=== PATIENT | male | born 1985 | race Caucasian/White ===

== ENCOUNTER 2022-07-14 08:37 | Emergency (ER) | payer OTHER, SELFPAY ==
[2022-07-14 08:43] VITALS: BMI 27.2
[2022-07-14 08:46] VITALS: BP 150/88; PULSE 64; RESP 17; TEMP 36.7; O2SAT 97
--- NOTE | 2022-07-14 08:59 | CTR_ITS ---
PROCEDURE INFORMATION: Exam: CTA Head With Contrast, Arteriography Exam date and time: 07/14/2022 9:23 AM Age: 37 years old Clinical indication: Pain; Headache; Additional info: Worst headache of life TECHNIQUE: Imaging protocol: Computed tomographic angiography of the head with contrast. Exam focused on the arteries. 3D rendering (Not supervised by radiologist): MIP and/or 3D reconstructed images were created by the technologist. Radiation optimization: All CT scans at this facility use at least one of these dose optimization techniques: automated exposure control; mA and/or kV adjustment per patient size (includes targeted exams where dose is matched to clinical indication); or iterative reconstruction. Contrast material: OMNI 350; Contrast volume: 100 ml; Contrast route: INTRAVENOUS (IV); COMPARISON: No relevant prior studies available. RADIATION DOSE METRICS: Total DLP (mGy-cm): 992.92 FINDINGS: ANTERIOR CIRCULATION: Right internal carotid artery: Intracranial segment is patent with no significant stenosis. No aneurysm. Right middle cerebral artery: No occlusion or significant stenosis. No aneurysm. Right anterior cerebral artery: No occlusion or significant stenosis. No aneurysm. Left internal carotid artery: Intracranial segment is patent with no significant stenosis. No aneurysm. Left middle cerebral artery: No occlusion or significant stenosis. No aneurysm. Left anterior cerebral artery: No occlusion or significant stenosis. No aneurysm. POSTERIOR CIRCULATION: Right vertebral artery: No occlusion or significant stenosis. No aneurysm. Left vertebral artery: No occlusion or significant stenosis. No aneurysm. Basilar artery: No occlusion or significant stenosis. No aneurysm. Right posterior cerebral artery: No occlusion or significant stenosis. No aneurysm. Left posterior cerebral artery: No occlusion or significant stenosis. No aneurysm. Brain: No definite mass, mass effect, or midline shift. Cerebral ventricles: No ventriculomegaly. Paranasal sinuses: Scattered mild mucosal thickening in the paranasal sinuses. Bones/joints: Unremarkable. No acute fracture. Soft tissues: Unremarkable. PROCEDURE INFORMATION: Exam: CTA Neck With Contrast Exam date and time: 07/14/2022 9:23 AM Age: 37 years old Clinical indication: Pain; Headache; Additional info: Worst headache of life TECHNIQUE: Imaging protocol: Computed tomographic angiography of the neck with contrast. 3D rendering (Not supervised by radiologist): MIP and/or 3D reconstructed images were created by the technologist. Radiation optimization: All CT scans at this facility use at least one of these dose optimization techniques: automated exposure control; mA and/or kV adjustment per patient size (includes targeted exams where dose is matched to clinical indication); or iterative reconstruction. Contrast material: OMNI 350; Contrast volume: 100 ml; Contrast route: INTRAVENOUS (IV); COMPARISON: CR XR soft tissue neck [id number] 07/07/2018 9:36 AM RADIATION DOSE METRICS: Total DLP (mGy-cm): 992.92 FINDINGS: Right common carotid artery: No stenosis. No dissection or occlusion. Right internal carotid artery: No stenosis of the extracranial segment. No dissection or occlusion. Right external carotid artery: No occlusion or stenosis of the origin. Left common carotid artery: No stenosis. No dissection or occlusion. Left internal carotid artery: No stenosis of the extracranial segment. No dissection or occlusion. Left external carotid artery: No occlusion or stenosis of the origin. Right vertebral artery: No stenosis. No dissection or occlusion. Left vertebral artery: No stenosis. No dissection or occlusion. Soft tissues: Normal. No significant soft tissue swelling. Bones/joints: No acute fracture. CT/CT angio headneck* [id number] IMPRESSION: No intracranial occlusion, stenosis or aneurysm. IMPRESSION: No stenosis or occlusion. REFERENCES: NASCET CRITERIA. The degree of stenosis in the cervical segment of the internal carotid artery is based on NASCET criteria. Normal is no stenosis. Mild is less than 50% stenosis. Moderate is 50-69% stenosis. Severe is 70% to 99% stenosis. Total occlusion is no detectable patent lumen.
--- NOTE | 2022-07-14 09:19 | ECG_ITS ---
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 Measurements Intervals [place] Rate: 63 P: -1 UT: 188 QRS: 12 QRSD: 96 T: 46 QT: 386 QTc: 395 Interpretive Statements SINUS RHYTHM WITH OCCASIONAL SUPRAVENTRICULAR PREMATURE COMPLEXES Compared to ECG 09/07/2018 10:05:17 Sinus arrhythmia no longer present Electronically Signed On 07-14-2022 22:03:52 CDT by Octavia Robledo M.D. [email or web address] memorial hospitalVmedia Researchmercy health defiance hospitalSpring Mobile [id number]
[2022-07-14 09:22] LABS: Basophils % 0.5 %; Eosinophils # 0.2 10^3/uL (0.0-0.8); Eosinophils % 3.9 %; Hematocrit 49.4 % (42.0-52.0); Hemoglobin 17.5 g/dL (11.7-16.6); Lymphocytes # 1.7 10^3/uL (0.8-4.8); Lymphocytes % 26.8 %; Mean Corpuscular HGB Conc 35.4 g/dL (30.0-36.0); Mean Corpuscular Hemoglobin 29.6 pg (28.0-34.0); Mean Corpuscular Volume 83.4 fl (80-94); Mean Platelet Volume 11.3 fL (7.4-10.4); Monocytes # 0.4 10^3/uL (0.2-0.9); Monocytes % 6.8 %; Neutrophils % 61.8 %; Nucleated Red Blood Cells % 0 %; Platelet Count 218 10^3/cmm (130-400); Red Blood Count 5.92 10^6/uL (4.1-5.3); Red Cell Distribution Width 11.8 % (12.1-15.1); White Blood Count 6.2 10^3/uL (4.0-10.0)
[2022-07-14] MEDS: iohexol 350 mg/mL 100 mL Btl IV (09:29)
--- NOTE | 2022-07-14 09:36 | ED_ITS ---
HPI - Headache General: Chief Complaint: Headache Stated Complaint: Migraine Time Seen by Provider: 07/14/22 08:59 History of Present Illness: This patient is a 37-year-old male presenting with the worst headache of his life. This began during intercourse at 10:00 last night. He felt lightheaded as though he was get a pass out. He said nothing seems to help the headache other than rubbing his scalp. He denies prior medical history. He states it feels like something burst in my head . 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 No other recent illness. He says his vision seems blurry but no other neurologic symptoms or complaint. He is able to ambulate normally. No trouble with coordination. He did have 1 episode of vomiting after the headache started. The patient was very anxious about his headache. He admitted that he had googled the diagnosis and may have influenced his choice of words and ex pressing his type of headache. Associated symptoms: Reports nausea and vomiting; Deny chest pain, fever(s), malaise or rash Review of Systems Const: Denies: fever(s), chills, fatigue or malaise Eyes: Reports: change in vision and blurry vision Card: Denies: chest pain or swelling of feet/ankles Resp: Denies: dyspnea, productive cough or non-productive cough GI: Reports: nausea and vomiting : Denies: flank pain Musc: Denies: neck pain or back pain Skin/Breast: Denies: rash Neuro: Reports: headache(s) Josr/Lymph: Denies: easy bruising or easy bleeding Physical Exam Const: COMMON NORMALS: patient oriented x3 and alert; apparent distress (Uncomfortable) GENERAL APPEARANCE: cooperative and comfortable HENMT: HEAD & SCALP: normal to inspection FACE & SINUS: normal facial exam Eye: GENERAL EYE: appearance normal, both eyes and all related structures Neck/C-Spine: COMMON NORMALS: supple, no meningeal signs and no JVD Chest: COMMONS NORMALS: normal inspection of the chest Resp: COMMON NORMALS: normal respiratory effort, No use of accessory muscles and clear to auscultation bilaterally AUSCULTATION: clear to auscultation bilaterally Cardio: COMMON NORMALS: no JVD, regular rate, regular rhythm and No murmurs present (Cardio) RATE: regular rate RHYTHM: regular rhythm GI: COMMON NORMALS: Normal to inspection, nondistended, normoactive bowel sounds present, Soft to palpation and non-tender INSPECTION: Yes normal to inspection AUSCULTATION: Yes normoactive bowel sounds PALPATION: Yes Soft to palpation Back/Pelvis: COMMON NORMALS: thoracic and lumbar spine normal to inspection Extremity: COMMON NORMALS: normal to inspection Neuro: COMMON NORMALS: patient oriented x3, moves all extremities, no focal motor deficits and no sensory deficits noted SENSORIUM/ORIENTATION: Yes alert MENINGEAL SIGNS: Yes no meningeal signs Psych: COMMON NORMALS: mental status grossly normal, cooperative and normal affect Skin: COMMON NORMALS: no rashes or lesions noted and turgor normal GENERAL SKIN EXAM: no rashes or lesions noted and turgor normal Course Vital Signs: Vital signs: Vital Signs Temperature 98.0 F 07/14/22 08:46 Pulse Rate 65 07/14/22 11:43 Respiratory Rate 18 07/14/22 11:43 Blood Pressure 134/93 07/14/22 11:43 Pulse Oximetry 99 07/14/22 11:43 Oxygen Delivery Me thod 07/14/22 09:53 MDM - Headache Medical Decision Making Presentation is very concerning for subarachnoid hemorrhage. Sudden onset of severe headache during intercourse with vomiting, lightheadedness. CT and CTA o rdered. Blood work ordered. EKG ordered. Pain medication and antiemetics ordered. Patient did not like the morphine. He it made him more anxious. He went to CT and had a negative CT and CTA. He was reassured by this. His symptoms had mostly resolved by then. He was given a dose of Toradol. We discussed that it is a known entity that headache can have onset during sexual intercourse. This does not have to be related to a subarachnoid but can simply occur in some people. He will follow-up with his primary care provider for further management if these headaches continue. Differential Diagnosis Likely migraine, tension headache, subarachnoid hemorrhage and headache Lab Data : 07/14/22 09:15 07/14/22 09:15 Radiology Impressions Head/Neck CTA 07/14/22 08:59 IMPRESSION: No intracranial occlusion, stenosis or aneurysm. IMPRESSION: No stenosis or occlusion. REFERENCES: NASCET CRITERIA. The degree of stenosis in the cervical segment of the internal carotid artery is based on NASCET criteria. Normal is no stenosis. Mild is less than 50% stenosis. Moderate is 50-69% stenosis. Severe is 70% to 99% stenosis. Total occlusion is no detectable patent lumen. Laboratory Results WBC 6.2 10^3/uL (4.0-10.0) 07/14/22 09:15 RBC 5.92 10^6/uL (4.1-5.3) H 07/14/22 09:15 Hgb 17.5 g/dL (11.7-16.6) H 07/14/22 09:15 Hct 49.4 % (42.0-52.0) 07/14/22 09:15 MCV 83.4 fl (80-94) 07/14/22 09:15 MCH 29.6 pg (28.0-34.0) 07/14/22 09:15 MCHC 35.4 g/dL (30.0-36.0) 07/14/22 09:15 RDW 11.8 % (12.1-15.1) L 07/14/22 09:15 Plt Count 218 10^3/cmm (130-400) 07/14/22 09:15 MPV 11.3 fL (7.4-10.4) H 07/14/22 09:15 Neut % (Auto) 61.8 % 07/14/22 09:15 Lymph % (Auto) 26.8 % 07/14/22 09:15 Ralls % (Auto) 6.8 % 07/14/22 09:15 Eos % (Auto) 3.9 % 07/14/22 09:15 Baso % (Auto) 0.5 % 07/14/22 09:15 Neut # (Auto) 3.80 10^3/uL (1.8-7.7) 07/14/22 09:15 Lymph # (Auto) 1.7 10^3/uL (0.8-4.8) 07/14/22 09:15 Ralls # (Auto) 0.4 10^3/uL (0.2-0.9) 07/14/22 09:15 Eos # (Auto) 0.2 10^3/uL (0.0-0.8) 07/14/22 09:15 Baso # (Auto) 0.0 10^3/uL (0.0-0.1) 07/14/22 09:15 Nucleated RBC % (auto) 0 % 07/14/22 09:15 Nucleated RBCs # 0.0 /100WBC 07/14/22 09:15 Sodium 139 mmol/L (136-145) 07/14/22 09:15 Potassium 4.1 mmol/L (3.5-5.1) 07/14/22 09:15 Chloride 105 mmol/L (98-107) 07/14/22 09:15 Carbon Dioxide 22 mmol/L (22-29) 07/14/22 09:15 Anion Gap 16.1 (5-19) 07/14/22 09:15 BUN 12 mg/dL (6-20) 07/14/22 09:15 Creatinine 0.8 mg/dL (0.7-1.2) 07/14/22 09:15 GFR Calculation 110.0 mL/min (90-130) 07/14/22 09:15 Glucose 106 mg/dL (65-115) 07/14/22 09:15 Calculated Osmolality 288 mOsm/kg (285-295) 07/14/22 09:15 Calcium 9.7 mg/dL (8.5-10.5) 07/14/22 09:15 Total Bilirubin 0.8 mg/dL (0.15-1.2) 07/14/22 09:15 AST 16 U/L (0-40) 07/14/22 09:15 ALT 20 U/L (0-41) 07/14/22 09:15 Alkaline Phosphatase 68 U/L (40-130) 07/14/22 09:15 Total Protein 7.2 g/dL (6.6-8.7) 07/14/22 09:15 Albumin 4.9 g/dL (3.5-5.2) 07/14/22 09:15 Globulin 2.3 g/dL (1.3-4.6) 07/14/22 09:15 Discharge Plan Discharge Patient Disposition: Home Clinical Impression: Coital headache Condition: Stable Discharge Orders: Discharge ED (Routine); Ordered 07/14/22 Ordered By: Latosha Meraz Referrals: [facility], [Staff Physician] - Discharge Diet: Usual diet Discharge Activity: Resume usual activity Patient Instructions: Opioid Safety, Pain Management Activity Restrictions/Additional Instructions: Return to the ER for worsening symptoms. Follow-up with your primary care physician to discuss this ER visit. You may use [id number] headache medications per label instructions. Stand Alone Forms: Work/School Release Coding Level of Care Code ED Engineer Operations And Maintenance for Vikki Fwd Exam Comprehensive
[2022-07-14 09:45] VITALS: RESP 21
[2022-07-14] MEDS: ondansetron 2 mg/ML SDV 2 mL 4 MG IVP (09:45)
[2022-07-14] MEDS: morphine 4 mg/mL SDV 1 mL IVP (09:45)
[2022-07-14 09:46] VITALS: BP 152/100; PULSE 65; RESP 122; O2SAT 98
[2022-07-14 09:53] VITALS: BP 134/89; PULSE 61; RESP 18; O2SAT 97
[2022-07-14 09:56] LABS: Alanine Aminotransferase 20 U/L (0-41); Albumin Level 4.9 g/dL (3.5-5.2); Alkaline Phosphatase 68 U/L (40-130); Anion Gap 16.1 (5-19); Aspartate Amino Transferase 16 U/L (0-40); Blood Urea Nitrogen 12 mg/dL (6-20); Calcium 9.7 mg/dL (8.5-10.5); Carbon Dioxide 22 mmol/L (22-29); Chloride 105 mmol/L (98-107); Globulin 2.3 g/dL (1.3-4.6); Glucose 106 mg/dL (65-115); Osmolality Calculated 288 mOsm/kg (285-295); Potassium 4.1 mmol/L (3.5-5.1); Sodium 139 mmol/L (136-145); Total Bilirubin 0.8 mg/dL (0.15-1.2); Total Protein 7.2 g/dL (6.6-8.7)
[2022-07-14] MEDS: LORazepam 2 mg/mL INJ 1 mL 1 MG IVP (10:17)
[2022-07-14] MEDS: ketorolac 30 mg/mL INJ 15 MG IVP (11:25)
[2022-07-14 11:43] VITALS: BP 134/93; PULSE 65; RESP 18; O2SAT 99
== END 2022-07-14 11:51 | disposition home or self-care (01) ==
PROVIDERS: Emergency Provider Emergency Medicine
DX: G44.89 Other headache syndrome (principal)
CPT/HCPCS: 70496; 70498; 80053; 85025; 93005; 96374; 96375; 99285; J1885; J2060; J2270; J2405; Q9967

== ENCOUNTER 2023-05-07 11:27 | Observation (INO) | payer BC, MEDICAID, SELFPAY ==
[2023-05-07 11:30] VITALS: BP 177/99; PULSE 42; RESP 17; TEMP 36.5; O2SAT 99; BMI 23.3
--- NOTE | 2023-05-07 12:05 | W.ED.PSYCHS ---
HPI - Psych General: Chief Complaint: Psychiatric Symptoms Stated Complaint: mental help, sent by behavior health Time Seen by Provider: 05/07/23 11:46 Source: patient Mode of arrival: ambulatory History of Present Illness: 38-year-old male presents to the emergency room from [facility]. He has had some relationship issues with a live-in girlfriend and essentially reached a crisis state today went to [facility] where he had been seen in the past by Dr. Rolon he had been started previously on buspirone and another medication he had stopped taking them because of side effects. He went to [facility] he wanted to talk to someone today they are able to get an open appointment for him later in the morning to talk to Dr. Chow he waited for a few hours talk to Dr. Chow suddenly of the course of the conversation resulted in him being referred to the emergency room. On arrival here he understands that he said in response to question about suicide screening that he had answered yes but he states he is referring to an episode years ago in the past. He says when he was in his mid teens nearly 20 years ago he attempted to drown himself in the bathtub but stopped himself and has never tried anything like that again. He adamantly denies any suicidal or homicidal ideation. I can see in the EMR that he has a note from crisis intervention and a note from Dr. Park but I cannot read these notes at this time. He says nothing to me that would justify 96-hour hold at this time. MD complaint: feels depressed Review of Systems Const: Denies: fever(s), chills, body aches, change in appetite, fatigue or malaise ENMT: Denies: throat pain, ear or mastoid pain, nasal discharge or nasal congestion Card: Denies: chest pain, edema, dyspnea on exertion or orthopnea Resp: Denies: dyspnea, productive cough or non-productive cough GI: Denies: abdominal pain, nausea, vomiting, hematemesis, coffee ground emesis, diarrhea, constipation, bloating, hematochezia or melena : Denies: flank pain, dysuria, urinary frequency or urinary urgency Skin/Breast: Denies: rash or pruritus PFS ED PFSH: Medical History Anxiety and depression Musculoskeletal back pain Myalgia Psychiatric care Family History Mother Cancer Other CAD (coronary artery disease) Diabetes Hypertension Denies family history of Chronic kidney disease (CKD) Anesthesia complication Bleeding disorder Social History Smoking and tobacco status: former smoker Second hand smoke exposure: No Alcohol intake: current Alcohol intake frequency: few times a week Substance/Drug Use: current Other substance/drug use details: CBD gummies and flour Lives independently: Yes Household members: none Physical Exam Const: COMMON NORMALS: no acute distress GENERAL APPEARANCE: cooperative and comfortable ORIENTATION/CONSCIOUSNESS: Yes awake, Yes oriented to person, Yes oriented to place and Yes oriented to time HENMT: COMMON NORMALS: normocephalic, atraumatic and hearing grossly normal bilaterally HEAD & SCALP: normocephalic and atraumatic Resp: COMMON NORMALS: normal respiratory effort, No retractions, No use of accessory muscles and clear to auscultation bilaterally AUSCULTATION: clear to auscultation bilaterally Cardio: COMMON NORMALS: regular rate, regular rhythm and No murmurs present (Cardio) RATE: regular rate RHYTHM: regular rhythm Extremity: COMMON NORMALS: normal to inspection, capillary refill normal, no clubbing, cyanosis or edema, no calf tenderness and no pedal edema Neuro: SENSORIUM/ORIENTATION: Yes oriented to person, Yes oriented to place and Yes oriented to time Skin: COMMON NORMALS: no rashes or lesions noted GENERAL SKIN EXAM: no rashes or lesions noted Course Vital Signs: Vital signs: Vital Signs Temperature 96.4 F L 05/08/23 13:08 Pulse Rate 57 L 05/08/23 13:08 Respiratory Rate 17 05/08/23 13:08 Blood Pressure 131/83 05/08/23 13:08 Pulse Oximetry 94 05/08/23 13:08 Oxygen Delivery Me thod Room Air 05/08/23 06:00 MDM - Psych Medical Decision Making Initially after talking the patient had anticipated letting him go home however after further evaluating and reviewing his Chart noted that there was a visit today from [facility] was Dr. Chow reviewed that note with Dr. Beck and after reviewing felt the patient probably should stay he had relayed to Dr. Rolon in the course of his visit today that he had been having suicidal ideations. Discussed with the patient my concern is is that psychiatrist had seen him and advised him to come to the emergency room and while he is denying suicidal ideation now he had indicated otherwise to the psychiatrist. I think he has had very high risk for self-harm given his overall situation and Dr. Beck concurs we both agree that he should be placed on a 96-hour hold and further evaluated. Lab Data 05/07/23 12:00 05/07/23 12:00 Laboratory Results WBC 6.5 10^3/uL (4.0-10.0) 05/07/23 12:00 RBC 5.65 10^6/uL (4.1-5.3) H 05/07/23 12:00 Hgb 16.5 g/dL (11.7-16.6) 05/07/23 12:00 Hct 48.3 % (42.0-52.0) 05/07/23 12:00 MCV 85.5 fl (80-94) 05/07/23 12:00 MCH 29.2 pg (28.0-34.0) 05/07/23 12:00 MCHC 34.2 g/dL (30.0-36.0) 05/07/23 12:00 RDW 12.4 % (12.1-15.1) 05/07/23 12:00 Plt Count 218 10^3/cmm (130-400) 05/07/23 12:00 MPV 11.1 fL (7.4-10.4) H 05/07/23 12:00 Neut % (Auto) 64.4 % 05/07/23 12:00 Lymph % (Auto) 23.5 % 05/07/23 12:00 Mccreary % (Auto) 7.7 % 05/07/23 12:00 Eos % (Auto) 3.9 % 05/07/23 12:00 Baso % (Auto) 0.3 % 05/07/23 12:00 Neut # (Auto) 4.16 10^3/uL (1.8-7.7) 05/07/23 12:00 Lymph # (Auto) 1.5 10^3/uL (0.8-4.8) 05/07/23 12:00 Mccreary # (Auto) 0.5 10^3/uL (0.2-0.9) 05/07/23 12:00 Eos # (Auto) 0.3 10^3/uL (0.0-0.8) 05/07/23 12:00 Baso # (Auto) 0.0 10^3/uL (0.0-0.1) 05/07/23 12:00 Nucleated RBC % (auto) 0 % 05/07/23 12:00 Nucleated RBCs # 0.0 /100WBC 05/07/23 12:00 Sodium 140 mmol/L (136-145) 05/07/23 12:00 Potassium 4.4 mmol/L (3.5-5.1) 05/07/23 12:00 Chloride 102 mmol/L (98-107) 05/07/23 12:00 Carbon Dioxide 26 mmol/L (22-29) 05/07/23 12:00 Anion Gap 16.4 (5-19) 05/07/23 12:00 BUN 8 mg/dL (6-20) 05/07/23 12:00 Creatinine 0.8 mg/dL (0.7-1.2) 05/07/23 12:00 GFR Calculation 109.4 mL/min (90-130) 05/07/23 12:00 Glucose 106 mg/dL (65-115) 05/07/23 12:00 Calculated Osmolality 289 mOsm/kg (285-295) 05/07/23 12:00 Calcium 9.3 mg/dL (8.5-10.5) 05/07/23 12:00 Total Bilirubin 1.2 mg/dL (0.15-1.2) 05/07/23 12:00 AST 15 U/L (0-40) 05/07/23 12:00 ALT 16 U/L (0-41) 05/07/23 12:00 Alkaline Phosphatase 67 U/L (40-130) 05/07/23 12:00 Total Protein 7.5 g/dL (6.6-8.7) 05/07/23 12:00 Albumin 4.9 g/dL (3.5-5.2) 05/07/23 12:00 Globulin 2.6 g/dL (1.3-4.6) 05/07/23 12:00 Urine Color Yellow (Yellow) 05/07/23 13:37 Urine Appearance Clear (CLEAR) 05/07/23 13:37 Urine pH 5 (5-7) 05/07/23 13:37 Ur Specific [place] 1.020 (1.005-1.030) 05/07/23 13:37 Urine Protein Neg (Negative) 05/07/23 13:37 Urine Glucose (UA) Norm (Normal) 05/07/23 13:37 Urine Ketones 1+ (Negative) H 05/07/23 13:37 Urine Blood Neg (Negative) 05/07/23 13:37 Urine Nitrate Negative (Negative) 05/07/23 13:37 Urine Bilirubin Neg (Negative) 05/07/23 13:37 Urine Urobilinogen Norm mg/dL (Negative) 05/07/23 13:37 Ur Leukocyte Esterase Negative (Negative) 05/07/23 13:37 Salicylates < 0.3 mg/dL (3-10) L 05/07/23 12:00 Urine Opiates Screen Negative ng/mL (Negative) 05/07/23 13:37 Acetaminophen < 5.0 ug/mL (10-30) L 05/07/23 12:00 Ur Barbiturates Screen Negative ng/mL (Negative) 05/07/23 13:37 Ur Phencyclidine Scrn Negative ng/mL (Negative) 05/07/23 13:37 Ur Amphetamines Screen Negative ng/mL (Negative) 05/07/23 13:37 U Benzodiazepines Scrn Negative ng/mL (Negative) 05/07/23 13:37 Urine Cocaine Screen Negative ng/mL (Negative) 05/07/23 13:37 U Marijuana (THC) Screen Positive ng/mL (Negative) H 05/07/23 13:37 Ethyl Alcohol < 10 mg/dL (0-10) 05/07/23 12:00 Discharge Plan Discharge Patient Disposition: Admitted As Inpatient Admit Provider: Parminder Beck Clinical Impression: Suicidal ideation, Adjustment disorder with mixed disturbance of emotions and conduct, Generalized anxiety disorder Condition: Stable Discharge Diet: Regular Discharge Activity: Resume usual activity Coding Level of Care Code ED Rental Boats Caretaker for Vikki Haro
[2023-05-07 12:07] LABS: Basophils % 0.3 %; Eosinophils # 0.3 10^3/uL (0.0-0.8); Eosinophils % 3.9 %; Hematocrit 48.3 % (42.0-52.0); Hemoglobin 16.5 g/dL (11.7-16.6); Lymphocytes # 1.5 10^3/uL (0.8-4.8); Lymphocytes % 23.5 %; Mean Corpuscular HGB Conc 34.2 g/dL (30.0-36.0); Mean Corpuscular Hemoglobin 29.2 pg (28.0-34.0); Mean Corpuscular Volume 85.5 fl (80-94); Mean Platelet Volume 11.1 fL (7.4-10.4); Monocytes # 0.5 10^3/uL (0.2-0.9); Monocytes % 7.7 %; Neutrophils # 4.16 10^3/uL (1.8-7.7); Neutrophils % 64.4 %; Nucleated Red Blood Cells % 0 %; Platelet Count 218 10^3/cmm (130-400); Red Blood Count 5.65 10^6/uL (4.1-5.3); Red Cell Distribution Width 12.4 % (12.1-15.1); White Blood Count 6.5 10^3/uL (4.0-10.0)
[2023-05-07 12:28] LABS: Alanine Aminotransferase 16 U/L (0-41); Albumin Level 4.9 g/dL (3.5-5.2); Alkaline Phosphatase 67 U/L (40-130); Anion Gap 16.4 (5-19); Aspartate Amino Transferase 15 U/L (0-40); Blood Urea Nitrogen 8 mg/dL (6-20); Calcium 9.3 mg/dL (8.5-10.5); Carbon Dioxide 26 mmol/L (22-29); Chloride 102 mmol/L (98-107); Globulin 2.6 g/dL (1.3-4.6); Glomerular Filtration Rate 109.4 mL/min (90-130); Glucose 106 mg/dL (65-115); Osmolality Calculated 289 mOsm/kg (285-295); Potassium 4.4 mmol/L (3.5-5.1); Sodium 140 mmol/L (136-145); Total Bilirubin 1.2 mg/dL (0.15-1.2); Total Protein 7.5 g/dL (6.6-8.7)
--- NOTE | 2023-05-07 12:28 | PC.PHAR ---
PT TAKING NO OTHER MEDS BUT AZELASTIN, FLONASE AND OMEPRAZOLE
[2023-05-07 12:30] LABS: Acetaminophen < 5.0 ug/mL (10-30); Alcohol Level < 10 mg/dL (0-10); Salicylate < 0.3 mg/dL (3-10)
[2023-05-07 13:48] LABS: Add Urine Microscopic? NO; Charge for UA Resulting for Rev
[2023-05-07 14:00] LABS: Urine Appearance Clear (CLEAR); Urine Color Yellow (Yellow)
[2023-05-07 14:01] LABS: Bilirubin Urine Neg (Negative); Blood Urine Neg (Negative); Glucose Urine UA Norm (Normal); Ketones Urine 1+ (Negative); Leukocyte Esterase Urine Negative (Negative); Nitrate Urine Negative (Negative); Protein Urine Neg (Negative); Urobilinogen Urine Norm (Negative); pH Urine 5 (5-7)
[2023-05-07 14:03] LABS: Amphetamines Screen Urine Negative (Negative); Barbiturates Screen Urine Negative (Negative); Benzodiazepines Screen Urine Negative (Negative); Cocaine Screen Urine Negative (Negative); Opiate Screen Urine Negative (Negative); PCP Screen Urine Negative (Negative); THC Screen Urine Positive (Negative)
[2023-05-07] MEDS: nicotine 4 mg lozenge MUCOUS MEM (14:48)
[2023-05-07 15:04] VITALS: BP 144/86; PULSE 45; RESP 18; O2SAT 100
[2023-05-07 15:55] VITALS: BP 150/94; PULSE 45; RESP 16; TEMP 36.9; O2SAT 100
--- NOTE | 2023-05-07 16:52 | PC.NURSE ---
96 hr rights reviewed with patient in presence of [facility] enterprise security architect Enrique @[phone]. No questions or needs verbalized at this time. Patient copy left at bedside with patient.
[2023-05-07] MEDS: hyDROXYzine 25 mg Capsule 50 MG PO (16:59)
[2023-05-07] MEDS: nicotine 21 mg Patch 1 PATCH TRANSDERMA (18:05)
[2023-05-07 22:00] VITALS: RESP 16
[2023-05-08] MEDS: hyDROXYzine 25 mg Capsule 50 MG PO (04:52)
[2023-05-08] MEDS: nicotine 2 mg Gum BUCCAL ×2 (04:52→07:05)
[2023-05-08 06:00] VITALS: BP 131/83; PULSE 57; RESP 17; TEMP 35.8; O2SAT 94
--- NOTE | 2023-05-08 09:07 | PC.NURSE ---
THIS RN WENT TO SEE PT TO COMPLETE PT ROUNDING THIS AM. PT WAS SITTING ON BED STARRING OUT OF WINDOW AND APPEARED TO BE DOWN/UPSET. RN STARTED TO ENGAGE IN ROUNDING CONVERSATION WHEN PT STATED HE GOT HERE YESTERDAY FROM THE ER AND HAS NOT SEEN DR. BOYD OF YET AND WOULD LIKE TO SEE SOMEONE THAT CAN DISCHARGE HIM. . PT WAS INFORMED HE WOULD SEE HIM TODAY. RN SAT DOWN TO SPEAK TO PT DUE TO HIM APPEARING UPSET. PT STATED HE WAS PLACED ON A 96 HOUR HOLD AFTER GOING TO [facility] AND ANSWERING THE SUICIDE QUESTIONS HONESTLY. HE DENIES ANY SUICIDAL IDEATION CURRENTLY. HE STATES WHEN ANSWERING THE QUESTION HAVE YOU EVER HAD ANY SUICIDAL THOUGHTS PT STATED YES HE HAS HAD IN THE PAST. PT STATED AFTER THAT THE NEXT THING HE KNEW HE WAS BEING ESCORTED TO THE ER DUE TO A 96 HOUR HOLD. PT STATES HE HAD NO CLUE WHAT THAT EVEN WAS AND NO ONE HAD TAKEN THE TIME TO EXPLAIN WHAT IT WAS OR WHY HE WAS HERE, OTHER THAN HIM HAVING SUICIDAL THOUGHTS. WHICH PT DENIES. RN EXPLAINED THE 96 HOUR HOLD PROCESS AND INFORMED HIM I WOULD HAVE TO INVESTIGATE WHY HE IS HERE THROUGH READING HIS AFFIDAVITS. PT ALSO STATED THAT HE NEEDED A NICOTINE PATCH AND SOMETHING FOR ANXIETY DUE TO HIS STOMACH BEING IN KNOTS DUE TO HIM HAVING HIS CAR WINDOWS DOWN, MEAT IN HIS KITCHEN SINK TO MAKE MEATLOAF AND TWO SHOWINGS TO SELL HIS HOUSE. PT DOES REPORT HE SOUGHT OUT TREATMENT YESTERDAY BECAUSE HE WAS NOT FEELING LIKE HIMSELF LATELY. THIS IS DUE TO HIS GIRLFRIEND WITH THREE KIDS RECENTLY CHEATING ON HIM AFTER BEING TOGETHER OVER A YEAR. PT STATES HE HAS BEEN PRESCRIBED BUSPAR AND XANAX IN THE PAST AND IS OPEN TO STARTING MEDICATIONS TO MANAGE HIS DEPRESSION AND ANXIETY BUT WOULD RATHER DO IT ON AN OUT PATIENT BASIS IF AT ALL POSSIBLE.PT WAS OFFERED MEDICATIONS FOR ANXIETY AND WAS GIVEN ZYDIS 5 MG ORDERED. PT ALSO REPORTED THAT I CAN'T HAVE A NICOTINE PATCH UNTIL NOON THATS WHAT THEY TOLD ME AND I'VE BEEN WEARING THIS SINCE YESTERDAY. ATTEMPTED TO GIVE NICOTINE PATCH AND SYSTEM WOULD NOT ALLOW. ONE TIME ORDER WAS PLACED FOR NICOTINE 21 MG PATCH NOW AND IT WAS ALSO GIVEN TO PT. PT IS CALM, COOPERATIVE BUT EXPRESSES FEELINGS OF RAGE DUE TO SITUATION. SPOKE WITH EMERGENCY CASE MANAGEMENT TO SEE IF SHE COULD POSSIBLY SO A SAFETY PLAN WITH HIM THIS AM. SHE STATES SHE WILL. PT THEN WENT TO ROOM TO SIT ON BED. WILL UPDATE STAFF AND DR. BOYD WHEN HE ARRIVES.
[2023-05-08] MEDS: benztropine 1 mg Tablet PO (09:10)
[2023-05-08] MEDS: nicotine 21 mg Patch 1 PATCH TRANSDERMA (09:10)
[2023-05-08] MEDS: OLANZapine 5 mg ODT PO (09:10)
--- NOTE | 2023-05-08 12:00 | P.NPUHP_ITS ---
Providers/Chief Complaint Admitting Physician: Parminder Beck MD Primary Care Provider: Tj West Chief Complaint: [facility] HPI NPU History of Present Illness Anup Rivera is a 38 year old male who presented to the emergency department with the following report: Chief Complaint: Psychiatric Symptoms Stated Complaint: [facility] Time Seen by Provider: 05/07/23 11:46 Source: patient Mode of arrival: ambulatory History of Present Illness: 38-year-old male presents to the emergency room from [facility]. He has had some relationship issues with a live-in girlfriend and essentially reached a crisis state today went to [facility] where he had been seen in the past by Dr. Rolon he had been started previously on buspirone and another medication he had stopped taking them because of side effects. He went to [facility] he wanted to talk to someone today they are able to get an open appointment for him later in the morning to talk to Dr. Chow he waited for a few hours talk to Dr. Chow suddenly of the course of the conversation resulted in him being referred to the emergency room. On arrival here he understands that he said in response to question about suicide screening that he had answered yes but he states he is referring to an episode years ago in the past. He says when he was in his mid teens nearly 20 years ago he attempted to drown himself in the bathtub but stopped himself and has never tried anything like that again. He adamantly denies any suicidal or homicidal ideation. I can see in the EMR that he has a note from crisis intervention and a note from Dr. Park but I cannot read these notes at this time. He says nothing to me that would justify 96-hour hold at this time. complaint: feels depressed. The patient was admitted to the neuropsychiatric unit for definitive treatment of those issues. The patient reports that the last time he took psychiatric medications was a couple months ago, and he reports that he stopped because he did not feel good on the medication. He reports that he was on BuSpar and Propranolol for anxiety, and something else. He reports that he went to a walk- in appointment and talked to them about stopping the medication and that he was having a bad day and wanted to get help. We discussed that we were told that he had described having some suicidal thoughts/feelings that have been going on for the past couple of months, and it was their recommendation, after seeing the patient, that he come to the hospital. The patient reports that he told them he is not suicidal and does not want to harm himself or anyone, but they were very focused on the fact that he was feeling that way and not taking the medication and were concerned and told him to go to the emergency department, and then they thought he needed to be admitted. The patient reports that he stressed that he does not feel suicidal or homicidal, he doesn?t want to harm himself. The patient endorses that he was previously psychiatric hospitalized over twenty years ago. He reports that, at that time, his parents had , and he caught his mom cheating on his dad, and he was young and said some stupid things. He reports that he has done outpatient services at [facility] previously, starting in August of last year, but hasn?t been there in a few months. He reports that he was told they would arrange a therapist, but he never heard back from them about therapy. He reports that in August he had gone to the emergency room, and they gave him thirty pills of Xanax. And he then went to [facility] and was prescribed the medications listed previously. He has not had any other psychiatric medications in his life. The patient endorses vaping. He quit smoking cigarettes a couple years ago and went to vaping, which he reports he does less than when he was smoking cigarettes. He reports that he drinks alcohol. He reports daily marijuana use. He denies any any other illicit drug use. He denies drug rehabilitation, DUI, or any other drug related charges. He reports that recently what has led to him feeling bad is his ex-girlfriend. She was texting him the other night. She had cheated on him previously. She said some upsetting things, so he blocked her number, and she showed up at his house, and he was just having a bad day and wanted to be connected with services. He reports that he works for [employer] and the [employer], and it was his boss who took him to get help. He reports that he went to [facility] yesterday because he wanted to get a therapist lined up and to talk about medication, and tried to be honest in answering the questions, but was clear that he did not want to harm himself and was just trying to get help. We discussed [facility] as an option but advised him there is also the crisis services center as another option in the future. PSYCHIATRIC HISTORY: As above. SUBSTANCE ABUSE HISTORY: As above. MEDICAL HISTORY: The patient denies any known allergies to medications. Meds NPU Home Medications Medication Instructions Recorded Confirmed Last Taken Type azelastine 137 mcg (0.1 %) nasal 1 spray intranasal DAILY 05/07/23 05/13/23 Unknown History spray aerosol fluticasone propionate 50 1 spray intranasal DAILY 05/07/23 05/13/23 Unknown His tory mcg/actuation nasal spray,suspension omeprazole 20 mg capsule,delayed 20 mg PO DAILY 05/07/23 05/13/23 Unknown History release fluoxetine 20 mg capsule (Prozac) 20 mg PO DAILY #30 caps 05/13/23 05/13/23 Unknown Rx Allergies Allergy/AdvReac Type Severity Reaction Status Date / Time No Known Allergies Allergy Verified 05/13/23 15:10 PFS NPU PFSH: Medical History Anxiety and depression Musculoskeletal back pain Myalgia Psychiatric care Family History Mother Cancer Other CAD (coronary artery disease) Diabetes Hypertension Denies family history of Chronic kidney disease (CKD) Anesthesia complication Bleeding disorder Social History Smoking and tobacco status: former smoker Second hand smoke exposure: No Alcohol intake: current Alcohol intake frequency: few times a week Substance/Drug Use: current Other substance/drug use details: CBD gummies and flour Lives independently: Yes Household members: none Mental Status Exam MSE Comments: This is a white male, in hospital scrubs, with adequate grooming and eye c ontact. No abnormal movements. Cooperative with exam in no acute distress. Speech was normal rate and volume. Mood described as good; affect congruent. Thought process, organized. Thought content: patient denied any suicidal or homicidal ideation, there were no delusions reported or noted, patient denied any auditory or visual hallucinations. Attention, concentration, and memory appeared intact, but none were formally tested. Alert and oriented times three. Insight and judgment are fair. Impulse control is fair. Vitals/I&O/Wt Last Vital Signs Temp 96.4 F L 05/08/23 06:00 Pulse 57 L 05/08/23 06:00 Resp 17 05/08/23 06:00 BP 131/83 05/08/23 06:00 Pulse Ox 94 05/08/23 06:00 O2 Del Method Room Air 05/08/23 06:00 Weight last 48 hrs Weight 72.575 kg Data NPU 05/07/23 12:00 05/07/23 12:00 A&P Assessment and plan (1) Alcohol abuse: (2) Cannabis use disorder, moderate, dependence: (3) Chronic post-traumatic stress disorder: (4) Generalized anxiety disorder: (5) Major depressive disorder, recurrent severe without psychotic features: (6) Adjustment disorder with mixed disturbance of emotions and conduct: (7) Partner relational problem: Plan This is a 38-year-old white male with a long history of mental health and some history of addiction challenges who presents having had headaches time recently leading to an urgent visit with his psychiatrist that led to a referral to come to the hospital reporting he is not in any risk of harming himself. 1. Continue current medication. 2. Encourage individual, group, and milieu therapy. 3. Continue q-15-minute checks for safety. 4. Recommend sober living treatment at the highest level of care to which the patient is willing to commit. 5. Obtain collateral information and consider discharge if lethality concerns are not credible. Involuntary Hold Information 96 Hour Hold: 96 Hour Involuntary Admission: Yes 96 Hour Hold Ending Date: 05/13/23 96 Hour Hold Ending Time: 15:00 Attestations NPU Medical Necessity Statement*: Inpatient hospitalization was medically necessary and the clinically appropriate intervention to evaluate patient for lethality. However he has no clear lethality noted and after holding collateral information will likely discharge. Coding Level of Care Code Acute Code for [facility] Fwd Diagnoses Alcohol abuse F10.10 Cannabis use disorder, moderate, dependence F12.20 Chronic post-traumatic stress disorder F43.12 Generalized anxiety disorder F41.1 Major depressive disorder, recurrent severe without psychotic features F33.2 Adjustment disorder with mixed disturbance of emotions and conduct F43.25 Partner relational problem Z63.0
--- NOTE | 2023-05-08 13:05 | W.PM.NPUDCS ---
Diagnoses at Discharge Discharge Diagnosis (1) Alcohol abuse: Status: Acute (2) Cannabis use disorder, moderate, dependence: Status: Acute (3) Chronic post-traumatic stress disorder: Status: Acute (4) Generalized anxiety disorder: Status: Acute (5) Major depressive disorder, recurrent severe without psychotic features: Status: Acute (6) Adjustment disorder with mixed disturbance of emotions and conduct: Status: Acute (7) Partner relational problem: Status: Acute Reason for Visit Reason for Visit: mental help, sent by [facility] Brief History: Anup Rivera is a 38 year old male who presented to the emergency department with the following report: Chief Complaint: Psychiatric Symptoms Stated Complaint: mental help, sent by [employer] Time Seen by Provider: 05/07/23 11:46 Source: patient Mode of arrival: ambulatory History of Present Illness: 38-year-old male presents to the emergency room from [facility]. He has had some relationship issues with a live-in girlfriend and essentially reached a crisis state today went to [facility] where he had been seen in the past by Dr. Rolon he had been started previously on buspirone and another medication he had stopped taking them because of side effects. He went to [facility] he wanted to talk to someone today they are able to get an open appointment for him later in the morning to talk to Dr. Chow he waited for a few hours talk to Dr. Chow suddenly of the course of the conversation resulted in him being referred to the emergency room. On arrival here he understands that he said in response to question about suicide screening that he had answered yes but he states he is referring to an episode years ago in the past. He says when he was in his mid teens nearly 20 years ago he attempted to drown himself in the bathtub but stopped himself and has never tried anything like that again. He adamantly denies any suicidal or homicidal ideation. I can see in the EMR that he has a note from crisis intervention and a note from Dr. Park but I cannot read these notes at this time. He says nothing to me that would justify 96-hour hold at this time. MD complaint: feels depressed. The patient was admitted to the neuropsychiatric unit for definitive treatment of those issues. The patient reports that the last time he took psychiatric medications was a couple months ago, and he reports that he stopped because he did not feel good on the medication. He reports that he was on BuSpar and Propranolol for anxiety, and something else. He reports that he went to a walk-in appointment and talked to them about stopping the medication and that he was having a bad day and wanted to get help. We discussed that we were told that he had described having some suicidal thoughts/feelings that have been going on for the past couple of months, and it was their recommendation, after seeing the patient, that he come to the hospital. The patient reports that he told them he is not suicidal and does not want to harm himself or anyone, but they were very focused on the fact that he was feeling that way and not taking the medication and were concerned and told him to go to the emergency department, and then they thought he needed to be admitted. The patient reports that he stressed that he does not feel suicidal or homicidal, he doesn?t want to harm himself. The patient endorses that he was previously psychiatric hospitalized over twenty years ago. He reports that, at that time, his parents had , and he caught his mom cheating on his dad, and he was young and said some stupid things. He reports that he has done outpatient services at [facility] previously, starting in August of last year, but hasn?t been there in a few months. He reports that he was told they would arrange a therapist, but he never heard back from them about therapy. He reports that in August he had gone to the emergency room, and they gave him thirty pills of Xanax. And he then went to [facility] and was prescribed the medications listed previously. He has not had any other psychiatric medications in his life. The patient endorses vaping. He quit smoking cigarettes a couple years ago and went to vaping, which he reports he does less than when he was smoking cigarettes. He reports that he drinks alcohol. He reports daily marijuana use. He denies any any other illicit drug use. He denies drug rehabilitation, DUI, or any other drug related charges. He reports that recently what has led to him feeling bad is his ex-girlfriend. She was texting him the other night. She had cheated on him previously. She said some upsetting things, so he blocked her number, and she showed up at his house, and he was just having a bad day and wanted to be connected with services. He reports that he works for [employer] and the [employer], and it was his boss who took him to get help. He reports that he went to [facility] yesterday because he wanted to get a therapist lined up and to talk about medication, and tried to be honest in answering the questions, but was clear that he did not want to harm himself and was just trying to get help. We discussed [facility] as an option but advised him there is also the crisis services center as another option in the future. PSYCHIATRIC HISTORY: As above. SUBSTANCE ABUSE HISTORY: As above. MEDICAL HISTORY: The patient denies any known allergies to medications. Hospital Course Hospital Course He quickly acclimated to the individual, group and milieu therapies provided.??He presented having had significant significant psychosocial stressors related to a relationship ending and the sequela from that change including some significant financial ones. He had gone to an urgent appointment with a psychiatrist and was being very honest about the intensity of his emotions but reports that they were not appreciating his continued reports that he was not suicidal and would never do anything to harm himself or kill himself. He was challenged to be admitted to the hospital to be evaluated. He was interviewed extensively and had no signs of credible lethality. He had outpatient resources in place and the social work team worked with him to make sure he did not have appropriate follow-up in place. He had significant improvement and was able to contract for safety outside of the hospital prior to discharge.? During the hospitalization, patient had routine laboratory studies which were within normal limits except for few outliers those of concern were managed by the hospitalist.? Additionally there was a general medical evaluation which was also within normal limits and revealed no new acute processes except for those mentioned above which were managed by the hospitalist. At the time of discharge, he denied psychosis or lethality.? Mood and anxiety were well managed.? Patient endorsed a plan to avoid all drugs of abuse and follow-up with the aftercare recommendations of the treatment team.? Patient was evaluated and deemed to be absent credible lethality, and had achieved the maximum benefit from an inpatient hospitalization, so was discharged.? Involuntary Hold Information 96 Hour Hold: 96 Hour Involuntary Admission: Yes 96 Hour Hold Ending Date: 05/13/23 96 Hour Hold Ending Time: 15:00 Mental Status Exam MSE Comments: This is a white male, in hospital scrubs, with adequate grooming and eye contact. No abnormal movements. Cooperative with exam in no acute distress. Speech was normal rate and volume. Mood described as good; affect congruent. Thought process, organized. Thought content: patient denied any suicidal or homicidal ideation, there were no delusions reported or noted, patient denied any auditory or visual hallucinations. Attention, concentration, and memory appeared intact, but none were formally tested. Alert and oriented times three. Insight and judgment are fair. Impulse control is fair. Discharge Data Studies Completed and Pending: Laboratory Results WBC 6.5 10^3/uL (4.0- 10.0) 05/07/23 12:00 RBC 5.65 10^6/uL (4.1 -5.3) H 05/07/23 12:00 Hgb 16.5 g/dL (11.7-1 6.6) 05/07/23 12:00 Hct 48.3 % (42.0-52.0 ) 05/07/23 12:00 MCV 85.5 fl (80-94) 05/07/23 12:00 MCH 29.2 pg (28.0-34. 0) 05/07/23 12:00 MCHC 34.2 g/dL (30.0-3 6.0) 05/07/23 12:00 RDW 12.4 % (12.1-15.1 ) 05/07/23 12:00 Plt Count 218 10^3/cmm (130 -400) 05/07/23 12:00 MPV 11.1 fL (7.4-10.4 ) H 05/07/23 12:00 Neut % (Auto) 64.4 % 05/07/23 12:00 Lymph % (Auto) 23.5 % 05/07/23 12:00 Meade % (Auto) 7.7 % 05/07/23 12:00 Eos % (Auto) 3.9 % 05/07/23 12:00 Baso % (Auto) 0.3 % 05/07/23 12:00 Neut # (Auto) 4.16 10^3/uL (1.8 -7.7) 05/07/23 12:00 Lymph # (Auto) 1.5 10^3/uL (0.8- 4.8) 05/07/23 12:00 Meade # (Auto) 0.5 10^3/uL (0.2- 0.9) 05/07/23 12:00 Eos # (Auto) 0.3 10^3/uL (0.0- 0.8) 05/07/23 12:00 Baso # (Auto) 0.0 10^3/uL (0.0- 0.1) 05/07/23 12:00 Nucleated RBC % (a uto) 0 % 05/07/23 12:00 Nucleated RBCs # 0.0 /100WBC 05/07/23 12:00 Sodium 140 mmol/L (136-1 45) 05/07/23 12:00 Potassium 4.4 mmol/L (3.5-5 .1) 05/07/23 12:00 Chloride 102 mmol/L (98-10 7) 05/07/23 12:00 Carbon Dioxide 26 mmol/L (22-29) 05/07/23 12:00 Anion Gap 16.4 (5-19) 05/07/23 12:00 BUN 8 mg/dL (6-20) 05/07/23 12:00 Creatinine 0.8 mg/dL (0.7-1. 2) 05/07/23 12:00 GFR Calculation 109.4 mL/min (90- 130) 05/07/23 12:00 Glucose 106 mg/dL (65-115 ) 05/07/23 12:00 Calculated Osmolal ity 289 mOsm/kg (285- 295) 05/07/23 12:00 Calcium 9.3 mg/dL (8.5-10 .5) 05/07/23 12:00 Total Bilirubin 1.2 mg/dL (0.15-1 .2) 05/07/23 12:00 AST 15 U/L (0-40) 05/07/23 12:00 ALT 16 U/L (0-41) 05/07/23 12:00 Alkaline Phosphata se 67 U/L (40-130) 05/07/23 12:00 Total Protein 7.5 g/dL (6.6-8.7 ) 05/07/23 12:00 Albumin 4.9 g/dL (3.5-5.2 ) 05/07/23 12:00 Globulin 2.6 g/dL (1.3-4.6 ) 05/07/23 12:00 Urine Color Yellow (Yellow) 05/07/23 13:37 Urine Appearance Clear (CLEAR) 05/07/23 13:37 Urine pH 5 (5-7) 05/07/23 13:37 Ur Specific Gravit y 1.020 (1.005-1.0 30) 05/07/23 13:37 Urine Protein Neg (Negative) 05/07/23 13:37 Urine Glucose (UA) Norm (Normal) 05/07/23 13:37 Urine Ketones 1+ (Negative) H 05/07/23 13:37 Urine Blood Neg (Negative) 05/07/23 13:37 Urine Nitrate Negative (Negati ve) 05/07/23 13:37 Urine Bilirubin Neg (Negative) 05/07/23 13:37 Urine Urobilinogen Norm mg/dL (Negat regan) 05/07/23 13:37 Ur Leukocyte Acacia ase Negative (Negati ve) 05/07/23 13:37 Salicylates < 0.3 mg/dL (3-10 ) L 05/07/23 12:00 Urine Opiates Scre en Negative ng/mL (N egative) 05/07/23 13:37 Acetaminophen < 5.0 ug/mL (10-3 0) L 05/07/23 12:00 Ur Barbiturates Sc reen Negative ng/mL (N egative) 05/07/23 13:37 Ur Phencyclidine S crn Negative ng/mL (N egative) 05/07/23 13:37 Ur Amphetamines Sc reen Negative ng/mL (N egative) 05/07/23 13:37 U Benzodiazepines Scrn Negative ng/mL (N egative) 05/07/23 13:37 Urine Cocaine Scre en Negative ng/mL (N egative) 05/07/23 13:37 U Marijuana (THC) Screen Positive ng/mL (N egative) H 05/07/23 13:37 Ethyl Alcohol < 10 mg/dL (0-10) 05/07/23 12:00 Vitals: Last Vital Signs Temp 96.4 F L 05/08/23 06:00 Pulse 57 L 05/08/23 06:00 Resp 17 05/08/23 06:00 BP 131/83 05/08/23 06:00 Pulse Ox 94 05/08/23 06:00 O2 Del Method Room Air 05/08/23 06:00 Discharge Plan Discharge Patient Disposition: Home Condition: Stable Prescriptions: Continued omeprazole 20 mg capsule,delayed release(DR/EC) 20 mg PO DAILY azelastine 137 mcg (0.1 %) aerosol,spray 1 spray INTRANASAL DAILY fluticasone propionate 50 mcg/actuation spray,suspension 1 spray INTRANASAL DAILY No Action fluoxetine [Prozac] 20 mg capsule 20 mg PO DAILY Qty: 30 0RF Discharge Orders: Discharge Order (Routine); Ordered 05/08/23 Ordered By: Parminder Beck Referrals: Dunia Sarmiento FNP [Nurse Practitioner] - 05/13/23 3:30 pm Discharge Diet: Regular Discharge Activity: Resume usual activity Patient Instructions: Depression, Anxiety (DC), Opioid Safety Stand Alone Forms: Work/School Release Discharge Attestations NPU Time Spent in Discharge Care*: greater than 30 min Specific Discharge Activities: Specific discharge activities: educating patient, discussing with caser in/social workers/dc planners, documenting/other paperwork and evaluating patient/reviewing data Coding Level of Care Code Acute Chg FW DC note Diagnoses Alcohol abuse F10.10 Cannabis use disorder, moderate, dependence F12.20 Chronic post-traumatic stress disorder F43.12 Generalized anxiety disorder F41.1 Major depressive disorder, recurrent severe without psychotic features F33.2 Adjustment disorder with mixed disturbance of emotions and conduct F43.25 Partner relational problem Z63.0
[2023-05-08 13:08] VITALS: BP 131/83; PULSE 57; RESP 17; TEMP 35.8; O2SAT 94
== END 2023-05-08 13:27 | disposition home or self-care (01) ==
LOC: ER 12:52 → NP 05-08 06:09
PROVIDERS: Admitting Provider Psychiatry & Neurology Psychiatry; Emergency Provider Family Medicine; PCP Nurse Practitioner Family; Visit Provider Psychiatry & Neurology Psychiatry
DX: F10.10 Alcohol abuse, uncomplicated (principal); F12.20 Cannabis dependence, uncomplicated; F43.12 Post-traumatic stress disorder, chronic; F41.1 Generalized anxiety disorder; F33.2 Major depressive disorder, recurrent severe without psychotic features; F43.25 Adjustment disorder with mixed disturbance of emotions and conduct; Z63.0 Problems in relationship with spouse or partner
CPT/HCPCS: 36415; 80053; 80306; 80307; 81003; 85025; 97165; 99285; G0378